=== PATIENT | female | born 1945 | race Caucasian/White ===

== ENCOUNTER 2021-02-12 07:01 | Observation (INO) | payer MEDICARE ==
[2021-02-11 11:17] LABS: BASOPHILS # (AUTO) 0.1 (0.0-0.1); EOSINOPHILS # (AUTO) 0.4 (0.0-0.4); EOSINOPHILS % 4.8 % (0.0-6.0); HEMATOCRIT 40.8 % (34.2-44.1); LYMPHOCYTES # (AUTO) 1.4 (1.0-3.2); LYMPHOCYTES % 16.3 % (18.0-39.1); MEAN CORPUSCULAR HEMOGLOBIN 29.8 pg (28-32); MEAN CORPUSCULAR HGB CONC 31.9 g/dL (31-35); MEAN CORPUSCULAR VOLUME 93.6 fL (81-99); MONOCYTES # (AUTO) 0.5 (0.2-0.8); MONOCYTES % 6.1 % (4.4-11.3); NEUTROPHILS # (AUTO) 6.2 (2.1-6.9); NEUTROPHILS % 70.4 % (38.7-80.0); PLATELET COUNT 194 x10e3/uL (140-360); RED BLOOD COUNT 4.36 x10e6/uL (3.6-5.1); RED CELL DISTRIBUTION WIDTH 13.1 % (11.7-14.4)
[2021-02-11 11:30] LABS: ANION GAP 15.8 mmol/L (8-16); CREATININE, SERUM 1.45 mg/dL (0.57-1.11); POTASSIUM 3.8 mmol/L (3.5-5.1)
[~2021-02-12] VITALS: Ht 170.2 cm; Wt 99.8 kg
[~2021-02-12 07:01] MED LIST: BACLOFEN10 MG PO; BREO ELLIPTA 11 EACH INH; FUROSEMIDE40 MG PO; HYDROCHLOROTHIA25 MG; LORAZEPAM2 MG/1 M1 IVP; LOSARTAN POTAS100 MG PO; MESALAMINE4 GM/60 ML; POTASSIUM CHLO20 ME1 PO; [UNRECOGNIZED DRUG - OTHER]
[2021-02-12] MEDS ORDERED: GABAPENTIN 300 MG CAP ONE (07:02)
[2021-02-12] MEDS ORDERED: CELECOXIB 200 MG CAP ONE (07:02)
[2021-02-12] MEDS ORDERED: SODIUM CHLORIDE 0.9% 50ML 100 ML ONE (07:02)
[2021-02-12] MEDS ORDERED: DEXAMETHASONE SOD PHOS 10 MG/1 ML VIAL ONE (07:02)
[2021-02-12] MEDS ORDERED: WELCHOL625 MG PO (07:08)
[2021-02-12] MEDS ORDERED: Vancomycin IV 1,000 MG ONE (07:16)
[2021-02-12] MEDS ORDERED: SODIUM CHLORIDE 0.9% 500ML 500 ML ONE (07:16)
[2021-02-12] MEDS ORDERED: TRANEXAMIC ACID 1,000 MG/10 ML ML ONE (07:17)
[2021-02-12] MEDS ORDERED: ROPIVACAINE 246.25 MG, EPINEPHRINE HCL 1:1000 1ML 0.5 MG, CLONIDINE HCL 0.08 MG, KETORO... INJ ONE ×5 (08:00)
[2021-02-12] MEDS ORDERED: BUPIVACAINE 7.5MG/ML /DEXTROSE 82.5MG/ML 2 ML AMP INJ ONE (08:11)
[2021-02-12] MEDS ORDERED: ACETAMINOPHEN 650 MG SUPP PR PRN (10:15)
[2021-02-12] MEDS ORDERED: DIPHENHYDRAMINE HCL INJ 50 MG/ML VIAL IV PRN (10:15)
[2021-02-12] MEDS ORDERED: HYDROCODONE/APAP 7.5MG-325MG 1 EA TAB PO PRN (10:15)
[2021-02-12] MEDS ORDERED: ONDANSETRON HCL INJ 2MG/ML 2ML 2 MG/ML VIAL IV PRN (10:15)
[2021-02-12] MEDS ORDERED: DOCUSATE SODIUM 100 MG CAP PO PRN (10:15)
[2021-02-12] MEDS ORDERED: FENTANYL CITRATE/PF 100MCG/2 ML INJ ONE (11:06)
[2021-02-12 11:48] VITALS: BP 125/49
[2021-02-12] MEDS: HYDROCODONE/APAP 5MG-325MG TAB PO PRN ×4 (12:15→19:24)
[2021-02-12 12:18] VITALS: BP 125/49
[2021-02-12] MEDS ORDERED: ACETAMINOPHEN 1000 MG/100 ML IV PRN (14:00)
[2021-02-12] MEDS: KETOROLAC TROMETHAMINE 30 MG/ML VIAL IV PRN ×3 (15:04→19:23)
[2021-02-12 15:22] VITALS: BP 107/57
[2021-02-12 15:31] VITALS: BP 125/49
[2021-02-12] MEDS: ASPIRIN 325 MG TAB PO SCH (17:00)
[2021-02-12] MEDS ORDERED: CELECOXIB 100 MG CAP PO SCH (17:00)
[2021-02-12] MEDS ORDERED: ONDANSETRON HCL 4 MG ORAL DISINTEGRATING TAB PO PRN (18:45)
[2021-02-12] MEDS: Cefazolin 1 GM in SODIUM CHLORIDE 0.9% 50ML 50 ML IV SCH (19:27)
[2021-02-12 20:00] VITALS: BP 169/69
[2021-02-12] MEDS: SODIUM CHLORIDE 0.9% 1000ML 1,000 ML IV SCH (20:15)
[2021-02-12] MEDS ORDERED: ATIVAN0.5 MG PO (20:35)
[2021-02-12] MEDS: BACLOFEN 10 MG TAB PO SCH (20:55)
[2021-02-12 21:00] VITALS: BP 169/69
[2021-02-12] MEDS ORDERED: LORAZEPAM 0.5 MG TAB PO PRN (21:00)
[2021-02-12] MEDS ORDERED: ZOLPIDEM TARTRATE 5 MG TAB PO PRN (21:00)
[2021-02-13] VITALS: BP 131/69
[2021-02-13] MEDS: Cefazolin 1 GM in SODIUM CHLORIDE 0.9% 50ML 50 ML IV SCH ×2 (00:11→09:16)
[2021-02-13] MEDS: SODIUM CHLORIDE 0.9% 1000ML 1,000 ML IV SCH (00:34)
[2021-02-13 04:00] VITALS: BP 144/56
[2021-02-13] MEDS ORDERED: PANTOPRAZOLE SOD 40 MG TABEC PO ONE (05:00)
[2021-02-13 06:17] LABS: HEMATOCRIT 31.6 % (34.2-44.1); HEMOGLOBIN 10.1 g/dL (12.0-16.0)
[2021-02-13 07:20] VITALS: BP 144/56
[2021-02-13 08:09] VITALS: BP 128/54
[2021-02-13] MEDS: BACLOFEN 10 MG TAB PO SCH (09:00)
[2021-02-13] MEDS ORDERED: POTASSIUM CHLORIDE 20 MEQ TAB CR PO SCH (09:00)
[2021-02-13] MEDS ORDERED: NON-FORMULARY MEDICATION (Fluticasone/Vilanterol (Breo Ellipta 100-25 Mcg INH) 1 INH) INH SCH (09:00)
[2021-02-13] MEDS ORDERED: LOSARTAN POTASSIUM 100 MG TAB PO SCH (09:00)
[2021-02-13] MEDS ORDERED: FUROSEMIDE 40 MG TAB PO SCH (09:00)
[2021-02-13] MEDS ORDERED: CELECOXIB 200 MG CAP PO SCH (09:00)
[2021-02-13] MEDS: ASPIRIN 325 MG TAB PO SCH (09:16)
[2021-02-13] MEDS ORDERED: COLESEVELAM HCL 625 MG TAB PO SCH (21:00)
== END 2021-02-13 10:10 | disposition home or self-care (01) ==
LOC: OR 07:01 → PACU V 10:39 → MED/SURG 11:30
PROVIDERS: ADMIT Specialist; ATTEND Specialist
DX: M16.0 Bilateral primary osteoarthritis of hip (principal); Z20.822 Contact with and (suspected) exposure to COVID-19; J44.9 Chronic obstructive pulmonary disease, unspecified; Z86.718 Personal history of other venous thrombosis and embolism; Z79.01 Long term (current) use of anticoagulants; F99 Mental disorder, not otherwise specified; I51.9 Heart disease, unspecified
CPT/HCPCS: 27130; 36415 ×2; 71046; 72170; 80048; 85014; 85018; 85025; 86850; 86900; 86920; 97110; 97116 ×3; 97139; 97162; 97530 ×2; 99251; C1713 ×3; C1776 ×2; G0378 ×2; J0171; J0690 ×2; J1100; J1885; J2795; J3010; J3370; J7040; S0164; U0002